=== PATIENT | male | born 1990 | race Caucasian/White ===

== ENCOUNTER → 2019-08-05 | Outpatient (CLI) | payer OTHER ==
--- NOTE | 2019-08-05 10:34 | MR ---
EXAMINATION TYPE: MR shoulder RT wo con DATE OF EXAM: 08/05/2019 COMPARISON: None HISTORY: Pain in right shoulder / Strain TECHNIQUE: Multiplanar, multisequence imaging of the right shoulder is performed without contrast. FINDINGS: There is a tiny subcentimeter cyst in the humeral head which has a benign appearance there is no evidence of glenohumeral joint effusion. Glenohumeral ligaments are intact. The bony labrum are intact by nonarthrogram technique. Bicipital tendon is well situated the bicipital groove. Intracapsular portion biceps tendon is intact . AC joint is maintained. No diagnostic evidence of impingement. Subscapular notch has a normal appeara nce. Subscapularis tendon has a normal appearance. Infraspinatus tendon has a normal appearance. There is bursal scuffing along the very distal margin of the supraspinatus tendon near the insertion and intrasubstance signal compatible with tendinosis. At the level the insertion there is a 4 mm area of abnormal signal involving the anterior fibers suggestive of a partial non through thickness tear. IMPRESSION: 1. Bursal scuffing and tendinosis distal margin supraspinatus tendon. There is a 4 mm area of increas ed signal near the insertion of the supraspinatus tendon involving the anterior fibers suggestive of a partial tear with no evidence of through thickness tear or retraction. 2. No diagnostic evidence of labral tear.
== END | disposition home or self-care (01) ==
LOC: RADMRIMAIN 09:38
PROVIDERS: ATTEND Orthopaedic Surgery
DX: M67.813 Other specified disorders of tendon, right shoulder (principal); S46.911D Strain of unspecified muscle, fascia and tendon at shoulder and upper arm level, right arm, subsequent encounter

== ENCOUNTER 2019-09-17 20:23 | Emergency (ER) | payer OTHER ==
[2019-09-17] MEDS ORDERED: IBUPROFEN 600 MG TAB PO STA (23:11)
[2019-09-17] MEDS ORDERED: BENZONATATE 100 MG CAP PO STA (23:11)
[2019-09-17] MEDS ORDERED: ACETAMINOPHEN TAB 500 MG TAB PO STA (23:11)
--- NOTE | 2019-09-17 23:14 | ED ---
General Adult HPI - General Chief complaint: Upper Respiratory Infection Stated complaint: Flu symp. Fever Time Seen by Provider: 09/17/19 22:52 Source: patient, family Mode of arrival: ambulatory Limitations: no limitations - History of Present Illness Initial comments: 29-year-old male patient presents to the emergency department today for evaluation of upper respiratory symptoms. Patient is reporting cough, nasal congestion, and sore throat. Patient states he started becoming ill on Saturday. States he has had fever and chills. He is reporting body aches including back and neck pain. States he did have one episode of diarrhea today but denies any vomiting. Denies any abdominal pain. Denies any sick contacts. Reports a benign medical history. Denies asthma or COPD. Denies history of smoking. Patient denies any recent rash, abdominal pain, constipation, numbness, tingling, dizziness, weakness, hematuria, dysuria, urinary urgency, urinary frequency, headache, visual changes, or any other complaints. - Related Data Previous Rx's Medication Instructions Recorded Ondansetron Odt [Zofran Odt] 4 mg PO Q6HR PRN #10 tab 09/03/16 Oseltamivir [Tamiflu] 75 mg PO Q12HR #10 cap 09/18/19 Allergies Allergy/AdvReac Type Severity Reaction Status Date / Time No Known Allergies Allergy Verified 09/17/19 21:27 Review of Systems ROS Statement: Those systems with pertinent positive or pertinent negative responses have been documented in the HPI. ROS Other: All systems not noted in ROS Statement are negative. Past Medical History Past Medical History: No Reported History History of Any Multi-Drug Resistant Organisms: None Reported Past Surgical History: No Surgical Hx Reported Past Psychological History: No Psychological Hx Reported Smoking Status: Never smoker Past Alcohol Use History: None Reported Past Drug Use History: None Reported General Exam Limitations: no limitations General appearance: alert, in no apparent distress, other (This is a well- developed, well-nourished, nontoxic-appearing adult male patient in no acute distress. Vital signs upon presentation are temperature 102.2F, pulse 123, respirations 20, blood pressure 124/86, pulse ox 97% on room air.) Eye exam: Present: normal appearance, PERRL, EOMI. Absent: scleral icterus, conjunctival injection, periorbital swelling ENT exam: Present: mucous membranes moist, TM's normal bilaterally. Absent: normal oropharynx (Pharyngeal erythema) Respiratory exam: Present: normal lung sounds bilaterally. Absent: respiratory distress, wheezes, rales, rhonchi, stridor Cardiovascular Exam: Present: normal rhythm, tachycardia, normal heart sounds. Absent: systolic murmur, diastolic murmur, rubs, gallop, clicks GI/Abdominal exam: Present: soft, normal bowel sounds. Absent: distended, tenderness, guarding, rebound, rigid Neurological exam: Present: alert, oriented X3, CN II-XII intact Psychiatric exam: Present: normal affect, normal mood Skin exam: Present: warm, dry, intact, normal color. Absent: rash Course Vital Signs 09/17/19 09/17/19 09/18/19 21:24 23:24 00:01 Temperature 102.2 F H 101.3 F H Pulse Rate 123 H 92 Respiratory 20 18 Rate Blood Pressure 124/86 110/67 O2 Sat by Pulse 97 100 Oximetry Medical Decision Making - Medical Decision Making 29-year-old male patient presents to the emergency department today for evaluation of fever, cough, nasal congestion. Physical examination did reveal pharyngeal erythema. Lungs are clear to auscultation with good air movement. Patient is febrile. Chest x-ray shows no acute cardio pulmonary process. He was positive for influenza B. Did discuss findings and results with the patient. We started on Tamiflu. He is educated regarding symptom relief with Tylenol and Motrin. He is instructed take Mucinex DM. He is instructed to follow-up with his primary care physician for recheck in 1-2 days. Return parameters discussed in detail. He verbalizes understanding and agrees with this plan. - Lab Data Lab Results 09/17/19 Range/Units 23:03 Influenza Type A RNA Not Detected (Not Detectd) Influenza Type B (PCR) Detected H (Not Detectd) - Radiology Data Radiology results: report reviewed, image reviewed Two-view x-ray of the chest is obtained. Report is reviewed in its entirety. Impression by Dr. Sanderson shows normal chest Disposition Clinical Impression: Influenza B Disposition: HOME SELF-CARE Condition: Good Instructions (If sedation given, give patient instructions): Influenza (ED) Additional Instructions: Increase fluids. Alternate Tylenol and Motrin for fever and pain control. Take Mucinex DM to relieve symptoms. Follow-up with your primary care physician for recheck in 1-2 days. Return to the emergency department immediately for any new, worsening, or concerning symptoms. Prescriptions: Oseltamivir [Tamiflu] 75 mg PO Q12HR #10 cap Is patient prescribed a controlled substance at d/c from ED?: No Referrals: None,Stated [Primary Care Provider] - 1-2 days Time of Disposition: 00:02
[2019-09-17 23:25] VITALS: BP 110/67; PULSE 92; RESP 18
--- NOTE | 2019-09-17 23:35 | XR ---
EXAMINATION TYPE: XR chest 2V DATE OF EXAM: 09/17/2019 COMPARISON: NONE HISTORY: Fever and cough TECHNIQUE: FINDINGS: Heart and mediastinum are normal. Lungs are clear. Diaphragm is normal. Bony thorax appears normal. IMPRESSION: Normal chest.
[2019-09-18] MEDS ORDERED: OSELTAMIVIR 75 MG CAP PO STA
[2019-09-18 00:02] VITALS: TEMP 101.3
== END 2019-09-18 00:30 | disposition home or self-care (01) ==
LOC: EC 20:23
DX: J10.1 Influenza due to other identified influenza virus with other respiratory manifestations (principal); R00.0 Tachycardia, unspecified; R19.7 Diarrhea, unspecified
CPT/HCPCS: 71046; 87502; 99283

== ENCOUNTER 2024-11-25 20:54 | Emergency (ER) | payer BC ==
--- NOTE | 2024-11-25 21:47 | ED ---
Lower Extremity Injury HPI - General Chief Complaint: Extremity Injury, Lower Stated Complaint: Left foot injury Time Seen by Provider: 11/25/24 21:16 Source: patient, RN notes reviewed Mode of arrival: ambulatory Limitations: no limitations - History of Present Illness Initial Comments: 34-year-old male presenting to the emergency department with left second toe pain. He states that he was sitting at his dinner table when the leg and one of the chairs directly hit his second toe causing immediate pain. Patient is concerned that the nail has been removed from his toe. He is able to ambulate after the injury. Last tetanus vaccination was in the last 5 years. No other acute complaints at this time. - Related Data Previous Rx's Medication Instructions Recorded Ondansetron Odt [Zofran Odt] 4 mg PO Q6HR PRN #10 tab 09/03/16 Oseltamivir [Tamiflu] 75 mg PO Q12HR #10 cap 09/18/19 Allergies Allergy/AdvReac Type Severity Reaction Status Date / Time No Known Allergies Allergy Verified 11/25/24 21:03 Review of Systems ROS Statement: Those systems with pertinent positive or pertinent negative responses have been documented in the HPI. ROS Other: All systems not noted in ROS Statement are negative. Past Medical History Past Medical History: No Reported History History of Any Multi-Drug Resistant Organisms: None Reported Past Surgical History: No Surgical Hx Reported Past Psychological History: No Psychological Hx Reported Smoking Status: Never smoker Past Alcohol Use History: None Reported Past Drug Use History: None Reported General Exam Limitations: no limitations General appearance: alert, in no apparent distress Neck exam: Present: normal inspection. Absent: tenderness, meningismus, lymphadenopathy Respiratory exam: Present: normal lung sounds bilaterally. Absent: respiratory distress, wheezes, rales, rhonchi, stridor Cardiovascular Exam: Present: regular rate, normal rhythm, normal heart sounds. Absent: systolic murmur, diastolic murmur, rubs, gallop, clicks GI/Abdominal exam: Present: soft, normal bowel sounds. Absent: distended, tenderness, guarding, rebound, rigid Left Foot/Toe exam: Present: tenderness, nail avulsion Neurovascular tendon exam: Present: no vascular compromise. Absent: pulse deficit Back exam: Present: normal inspection Course Vital Signs 11/25/24 11/25/24 21:00 23:43 Temperature 97.7 F 98.1 F Pulse Rate 68 60 Respiratory 20 17 Rate Blood Pressure 125/79 127/77 O2 Sat by Pulse 97 97 Oximetry Medical Decision Making - Medical Decision Making Was pt. sent in by a medical professional or institution (, [facility], WIRELESS SALES REPRESENTATIVE, urgent care, hospital, or penitentiary...) When possible be specific @ -No Did you speak to anyone other than the patient for history (EMS, parent, family, police, friend...)? What history was obtained from this source @ -No Did you review nursing and triage notes (agree or disagree)? Why? @ -I reviewed and agree with nursing and triage notes Were old charts reviewed (outside hosp., previous admission, EMS record, old EKG, old radiological studies, urgent care reports/EKG's, penitentiary records)? Report findings @ -No old charts were reviewed Differential Diagnosis (chest pain, altered mental status, abdominal pain women, abdominal pain men, vaginal bleeding, weakness, fever, dyspnea, syncope, headache, dizziness, GI bleed, back pain, seizure, CVA, palpatations, mental health, musculoskeletal)? @ -Differential Musculoskeletal Muscular strain, contusion, ligament sprain, fracture, arthritis, septic arthritis, bursitis, cellulitis, muscle spasm, nerve compression, DVT, arterial occlusion, herpes zoster, electrolyte abnormality, tumor.... This is not meant to be in all inclusive list EKG interpreted by me (3pts min.). @ -None X-rays interpreted by me (1pt min.). @ -X-ray of the left toe no evidence of fracture CT interpreted by me (1pt min.). @ -None done U/S interpreted by me (1pt. min.). @ -None done What testing was considered but not performed or refused? (CT, X-rays, U/S, labs)? Why? @ -None What meds were considered but not given or refused? Why? @ -None Did you discuss the management of the patient with other professionals (professionals i.e. [employer] Jung, WIRELESS SALES REPRESENTATIVE, lab, RT, psych nurse, social media campaign manager, farm equipment engineer, teacher, chief legal officer, lining caser)? Give summary @ -No Was smoking cessation discussed for >3mins.? @ -No Was critical care preformed (if so, how long)? @ -No Were there social determinants of health that impacted care today? How? (Homelessness, low income, unemployed, alcoholism, drug addiction, transportation, low edu. Level, literacy, decrease access to med. care, long term, rehab)? @ -No Was there de-escalation of care discussed even if they declined (Discuss DNR or withdrawal of care, Hospice)? DNR status @ -No What co-morbidities impacted this encounter? (DM, HTN, Smoking, COPD, CAD, Cancer, CVA, ARF, Chemo, Hep., AIDS, mental health diagnosis, sleep apnea, morbid obesity)? @ -None Was patient admitted / discharged? Hospital course, mention meds given and route, prescriptions, significant lab abnormalities, going to OR and other pertinent info. @ -Discharge. 34-year-old male presenting with pain to the left foot. There is noted nail avulsion and loss nail of the left second toe. Pedal pulse intact. He is provided with Tylenol for pain relief. X-ray is unremarkable. Toe was soaked in Betadine solution with sterile water. Nursing staff appropriately wrapped the toe and supportive treatment discussed with the patient at bedside. Case discussed with Dr. Terrazas Undiagnosed new problem with uncertain prognosis? @ -No Drug Therapy requiring intensive monitoring for toxicity (Heparin, Nitro, Insulin, Cardizem)? @ -No Were any procedures done? @ -No Diagnosis/symptom? @ -Nail avulsion Acute, or Chronic, or Acute on Chronic? @ -Acute Uncomplicated (without systemic symptoms) or Complicated (systemic symptoms)? @ -uncomplicated Side effects of treatment? @ -No Exacerbation, Progression, or Severe Exacerbation? @ -No Poses a threat to life or bodily function? How? (Chest pain, [place], [place], pneumonia, PE, COPD, DKA, ARF, appy, cholecystitis, CVA, Diverticulitis, Homicidal, Suicidal, threat to staff... and all critical care pts) @ -No Disposition Clinical Impression: Nail avulsion Disposition: HOME SELF-CARE Condition: Good Instructions (If sedation given, give patient instructions): Nail Avulsion (ED) Additional Instructions: Please return to the Emergency Department if symptoms worsen or any other concerns. Is patient prescribed a controlled substance at d/c from ED?: No Referrals: Ulises Abbasi MD [Primary Care Provider] - 1-2 days
--- NOTE | 2024-11-25 22:00 | XR ---
EXAMINATION TYPE: XR toes LT DATE OF EXAM: 11/25/2024 9:57 PM INDICATION: Patient age:Male; 34 years old; Reason for study: 2nd digit injury; PHH. pain COMPARISON: None TECHNIQUE: The second digit of the left foot was examined in the AP, oblique, and lateral projections . FINDINGS: No evidence of any acute osseous pathology. No evidence of soft tissue swelling. Joints are preserve d. No osseous erosions. No radiopaque foreign body. IMPRESSION: No evidence of acute fracture. [facility], , 11/25/2024 9:58 PM
[2024-11-25] MEDS: ACETAMINOPHEN TAB 500 MG TAB PO STA (22:05)
[2024-11-25 23:44] VITALS: BP 127/77; PULSE 60; RESP 17; TEMP 98.1
== END 2024-11-25 23:47 | disposition home or self-care (01) ==
LOC: EC 20:54
DX: S91.205A Unspecified open wound of left lesser toe(s) with damage to nail, initial encounter (principal); W22.09XA Striking against other stationary object, initial encounter
CPT/HCPCS: 99283